=== PATIENT | male | born 1985 | race African-American/Black ===

== ENCOUNTER 2017-07-21 09:49 | Inpatient (IN) | payer OTHER ==
[2017-07-21] VITALS (13 sets, daily range): BP systolic 114–154; BP diastolic 62–89
[~2017-07-21] VITALS: Ht 177.8 cm; Wt 81.6 kg
[~2017-07-21 09:49] MED LIST: ceFAZolin sod 2 GM in D5W 110 ML IVPB ONE
--- NOTE | 2017-07-21 10:53 | Pre-Procedure Note/Attestation ---
Pre-Procedure Note/Attestation Complete Prior to Procedure Procedure Narrative: L4-5 LAMINOTOMIES, MEDIAL FACETECOMIES AND FORAMINOTOMIES WITH POSSIBLE MICRODISCECTOMY Indications for Procedure Pre-Operative Diagnosis: LUMBAR RADICULOPATHY Attestation I attest that I discussed the nature of the procedure; its benefits; risks and complications; and alternatives (and the risks and benefits of such alternatives ), prior to the procedure, with the patient (or the patient's legal sales representative metals). I attest that, if there was a reasonable possibility of needing a blood transfusion, the patient (or the patient's legal sales representative metals) was given the [facility] standardized written summary, pursuant to the [place] Blood Safety Act ([place] Health and Safety Code # 1645, as amended). I attest that I re-evaluated the patient just prior to the surgery and that there has been no change in the patient's H&P, except as documented below: RUBI CHEEMA Jul 21, 2017 10:52
[2017-07-21] MEDS ORDERED: LR 1000ml ONE (11:00)
[2017-07-21] MEDS ORDERED: Glycopyrrolate 0.2mg/ml 1ml Vial ONE (11:00)
[2017-07-21] MEDS ORDERED: Ketorolac 30mg Inj ONE (11:00)
[2017-07-21] MEDS ORDERED: Dexamethasone 4mg/ml vial ONE (11:00)
[2017-07-21] MEDS ORDERED: NS Irrig 1000ml ONE (11:00)
[2017-07-21] MEDS ORDERED: Lidocaine 1% MPF 10mg/ml 5ml ONE (11:00)
[2017-07-21] MEDS ORDERED: Sterile Water Irrig 1000ml IRRIG ONE (11:00)
[2017-07-21] MEDS ORDERED: Zemuron 50mg/5ml Inj IV ONE (11:04)
[2017-07-21] MEDS ORDERED: Succinylcholine 20mg/ml 10ml vial ONE (11:04)
[2017-07-21] MEDS ORDERED: EPINEPHrine 1mg/1ml Amp ONE (11:21)
[2017-07-21] MEDS ORDERED: Propofol 200mg/20ml IV ONE (12:29)
[2017-07-21] MEDS ORDERED: Vancomycin 1gm inj IVPB ONE (13:14)
[2017-07-21] MEDS ORDERED: Midazolam 2mg/2ml Inj ONE (13:14)
[2017-07-21] MEDS ORDERED: fentaNYL 100 mcg/2 mL IV ONE (13:14)
[2017-07-21] MEDS ORDERED: Bacitracin 50000 Units Vial ONE (13:15)
[2017-07-21] MEDS ORDERED: Bupivacaine 0.5% Inj 30 ml vial INJ ONE (13:15)
[2017-07-21] MEDS ORDERED: Thrombin 5000 units TOPIC ONE (13:15)
[2017-07-21] MEDS ORDERED: Meperidine 50mg/ml Inj(FOR RIGORS ONLY) ONE (13:31)
--- NOTE | 2017-07-21 13:39 | Brief Operative Note ---
Immediate Post Operative Note Operative Note Pre-op Diagnosis: LUMBAR RADICULOPATHY Procedure: L45 BILATERAL LAMINOTOMIES, FORAMINOTOMIES AND MEDIAL FACETECTOMIES Post-op Diagnosis: same as pre-op Findings: consistent w/pre-op dx studies Surgeon: ANETTE Offset Platemaker: KETAN Anesthesiologist: ABDIRAHMAN Anesthesia: general Specimen: none Complications: none Condition: stable Fluids: 1100CC CRYSTALLOID Estimated Blood Loss: minimal - 20CC Drains: none Implant(s) used?: No RUBI CHEEMA Jul 21, 2017 13:39
[2017-07-21] MEDS ORDERED: DiphenhydrAMINE 50mg/ml Inj IVP PRN (14:00)
[2017-07-21] MEDS ORDERED: Ketorolac 30mg Inj IV PRN (14:00)
[2017-07-21] MEDS ORDERED: Midazolam 2mg/2ml Inj IVP PRN (14:00)
[2017-07-21] MEDS ORDERED: Hydromorphone 0.5mg/0.5ml inj IVP PRN (14:00)
[2017-07-21] MEDS ORDERED: HYDROcodone/Acetamin 7.5/325 tab ORAL PRN (15:59)
[2017-07-21] MEDS ORDERED: Norco 5mg/325mg tab ORAL PRN (15:59)
[2017-07-21] MEDS ORDERED: Naloxone 0.4mg/ml Inj IVP PRN (15:59)
[2017-07-21] MEDS: D5 1/2NS 1,000 ML IV SCH (16:30)
[2017-07-21] MEDS: HYDROcodone/Acetamin 7.5/325 tab ORAL PRN ×2 (16:47→20:55)
--- NOTE | 2017-07-21 17:38 | Diagnostic Imaging Report ---
Indication: Pain Technique: Intraoperative fluoroscopic image Operating surgeon: Concepción Fluoroscopy time: 1.8 Seconds Fluoroscopy dose: 0.4 mGy Comparison: None Findings: One fluoroscopic intraoperative image obtained of the lower lumbar spine. Please see operative report. Impression: Intraoperative fluoroscopic images submitted for archival to PACS. Please see operative report.
[2017-07-21] MEDS: Docusate 100mg cap ORAL SCH (18:34)
[2017-07-21] MEDS: ceFAZolin sod 1 GM in D5W 55 ML IV SCH (18:34)
[2017-07-22] VITALS: BP 116/72
[2017-07-22] MEDS: HYDROcodone/Acetamin 7.5/325 tab ORAL PRN ×3 (00:02→12:13)
[2017-07-22] MEDS: D5 1/2NS 1,000 ML IV SCH ×2 (02:05→12:05)
[2017-07-22] MEDS: ceFAZolin sod 1 GM in D5W 55 ML IV SCH ×2 (02:40→11:00)
[2017-07-22 06:00] VITALS: BP 130/77
[2017-07-22 08:00] VITALS: BP 121/73
[2017-07-22] MEDS: Docusate 100mg cap ORAL SCH (08:41)
[2017-07-22 12:00] VITALS: BP 129/84
--- NOTE | 2017-07-22 12:47 | History and Physical ---
History of Present Illness General Date patient seen: Jul 22, 2017 Present Illness HPI 32 year old male with hx of LUMBAR RADICULOPATHY admitted for L45 BILATERAL LAMINOTOMIES, FORAMINOTOMIES AND MEDIAL FACETECTOMIES. Post operatively he is admitted to surgical floor for post op care. Pt is comfortable, the pain is controlled, only slightly anxious. Allergies: Coded Allergies: No Known Allergies (Unverified , 07/21/17) Medication History No Active Prescriptions or Reported Meds Patient History Healthcare decision maker rahel() Resuscitation status Full Code Advanced Directive on File No Past Medical/Surgical History Past Medical/Surgical History: (1) H/O right knee surgery Review of Systems All Other Systems: negative except mentioned in HPI Physical Exam General Appearance: WD/WN Lines, tubes and drains: peripheral HEENT: normocephalic, atraumatic Neck: non-tender, normal alignment Respiratory/Chest: chest wall non-tender, lungs clear Breasts: no masses Cardiovascular/Chest: normal peripheral pulses Abdomen: normal bowel sounds, non tender Genitourinary/Rectal: normal genital exam Extremities: normal range of motion Skin Exam: normal pigmentation Neurologic: ghost writer II-XII grossly normal Last 24 Hour Vital Signs Date Time Temp Pulse Resp B/P (MAP) Pulse Ox O2 Delivery O2 Flow Rate FiO2 07/22/17 12:00 99.4 92 20 129/84 100 Room Air 99.4 07/22/17 08:00 99.4 98 20 121/73 100 Room Air 99.4 07/22/17 06:00 97.7 88 20 130/77 99 Room Air 97.7 07/22/17 04:13 100.7 07/22/17 03:14 100.7 07/22/17 00:02 100.7 07/22/17 00:00 98.2 84 17 116/72 98 Room Air 98.2 07/21/17 20:55 100.7 07/21/17 20:00 98.6 92 19 124/79 98 Room Air 98.6 07/21/17 16:47 100.7 07/21/17 16:00 100.7 102 21 138/75 100 100.7 07/21/17 15:28 98.2 07/21/17 15:15 98.2 98 22 118/73 100 Nasal Cannula 3.0 98.2 07/21/17 15:00 95 23 114/62 100 Nasal Cannula 3.0 07/21/17 14:50 94 21 117/69 100 Nasal Cannula 3.0 07/21/17 14:40 96 18 120/74 100 Nasal Cannula 3.0 07/21/17 14:30 95 20 123/78 100 Nasal Cannula 3.0 07/21/17 14:15 96 18 125/79 100 Nasal Cannula 3.0 07/21/17 14:08 97.8 07/21/17 14:00 95 18 129/84 100 Nasal Cannula 3.0 07/21/17 13:50 94 16 131/85 100 Simple Mask 6.0 07/21/17 13:45 98 18 124/89 100 Simple Mask 6.0 07/21/17 13:40 97.8 101 14 136/81 100 Simple Mask 6.0 97.8 Intake and Output 07/21/17 07/22/17 19:00 07:00 Intake Total 1990 ml 2120 ml Output Total 220 ml Balance 1770 ml 2120 ml Intake Oral 240 ml 1110 ml IV Total 1750 ml 1010 ml Output Urine Total 200 ml Estimated Blood Loss 20 ml # Voids 1 3 # Bowel Movements 1 Height (Feet): 5 Height (Inches): 10.00 Weight (Pounds): 180 Medications Current Medications Medications (Trade) Dose Ordered Sig/Rudolph Route PRN Reason Start Time Stop Time Status Last Admin Dose Admin Acetaminophen/ Hydrocodone Bitart ([place] 5/325) 1 tab Q3H PRN ORAL pain score 1-3 07/21/17 15:59 07/28/17 15:58 Acetaminophen/ Hydrocodone Bitart ([place] 7.5/325) 1 tab Q3H PRN ORAL pain score 4-6 07/21/17 15:59 07/28/17 15:58 Acetaminophen/ Hydrocodone Bitart ([place] 7.5/325) 2 tab Q3H PRN ORAL pain scale 7-10 07/21/17 15:59 07/28/17 15:58 07/22/17 12:13 Dextrose/Sodium Chloride 1,000 ml @ 100 mls/hr Q10H IV 07/21/17 15:58 08/20/17 15:57 07/22/17 12:05 Docusate Sodium (Colace) 100 mg TWICE A DAY ORAL 07/21/17 18:00 08/20/17 17:59 07/22/17 08:41 Hydromorphone HCl (Dilaudid) 1 mg Q2H PRN IVP Breakthrough Pain 07/21/17 15:59 07/28/17 15:58 Hydromorphone HCl (Dilaudid) 1 mg Q4H PRN SUBQ Mild Pain (Pain Scale 1-3) 07/21/17 15:59 07/28/17 15:58 Hydromorphone HCl (Dilaudid) 2 mg Q3H PRN SUBQ Severe Pain (Pain Scale 7-10) 07/21/17 15:58 07/28/17 15:57 07/22/17 08:41 Hydromorphone HCl (Dilaudid) 2 mg Q4H PRN SUBQ Moderate Pain (Pain Scale 4-6) 07/21/17 15:58 07/28/17 15:57 Naloxone HCl (Narcan) 0.1 mg PRN PRN IVP RR<12/min, pt unarousable 07/21/17 15:59 08/20/17 15:58 Assessment/Plan Problem List: (1) Lumbar radiculopathy ICD Codes: M54.16 - Radiculopathy, lumbar region SNOMED: [id number] Assessment/Plan s/p L45 BILATERAL LAMINOTOMIES, FORAMINOTOMIES AND MEDIAL FACETECTOMIES pain management dvt prophylaxis symptomatic treatment dc when ok with surgeon. Cher Macias MD Jul 22, 2017 12:47
[2017-07-22 13:36] VITALS: BP 136/72
--- NOTE | 2017-07-22 13:36 | 48 Hour Post Anesthesia Eval ---
Post Anesthesia Evaluation Procedure: L4-L5 laminotomy with decompression Date of Evaluation: Jul 22, 2017 Time of Evaluation: 13:35 Blood Pressure Systolic: 136 0: 72 Pulse Rate: 64 Respiratory Rate: 20 Temperature (Fahrenheit): 97.6 O2 Sat by Pulse Oximetry: 98 Airway: patent Nausea: No Vomiting: No Pain Intensity: 3 Hydration Status: adequate Cardiopulmonary Status: stable Mental Status/LOC: patient returned to baseline Follow-up Care/Observations: n/a Post-Anesthesia Complications: none Follow-up care needed: N/A EDEL OCHOA M.D. Jul 22, 2017 13:36
[2017-07-22] MEDS ORDERED: 1/2 NS 1000ml IV ONE (13:59)
[2017-07-22] MEDS ORDERED: D5 1/2NS 1000ml IV ONE (13:59)
--- NOTE | 2017-07-23 10:41 | Discharge Summary ---
Discharge Summary Discharge Summary Discharge Summary DATE OF ADMISSION: 07/21/2017 DATE OF DISCHARGE: 07/22/2017 CONSULTANTS: Dr. Cher Macias BRIEF HOSPITAL COURSE: Patient is a 32-year-old male, with history of lumbar radiculopathy, was admitted for L4-L5 bilateral laminectomy, foraminotomy, and medial facetectomy. Postoperatively he was admitted to surgical floor for postoperative care. He was given pain management and diet was advanced. He was placed on SCDs for DVT prophylaxis. He was given PT and OT. He had slight fever however eventually defervesced. He was ambulating well and had good pain control. He was eventually discharged home. FINAL DIAGNOSES: Lumbar radiculopathy status post L4-L5 bilateral laminotomy, foraminotomy, and medial facetectomy. (Please refer to operative report.) DISPOSITION: Patient was discharged home. DISCHARGE INSTRUCTIONS: Follow up with in a week. I have been assigned to dictate discharge summary on this account, and I was not involved in the patient's management. Nicole Lamb NP Jul 23, 2017 10:41
--- NOTE | 2017-07-25 23:30 | Operative Note - Dictated ---
DATE OF OPERATION: 07/21/2017 PREOPERATIVE DIAGNOSIS: L4-L5 disk bulge with stenosis and lower extremity radiculopathy. POSTOPERATIVE DIAGNOSIS: L4-L5 disk bulge with stenosis and lower extremity radiculopathy. PROCEDURE PERFORMED: 1. Right L4-L5 inter lumbar laminotomy, medial facetectomy, and foraminotomy. 2. Left L4-L5 inter lumbar laminotomy, medial facetectomy, and foraminotomy. 3. Intraoperative use of microscope. 4. Intraoperative use of fluoroscopy. SURGEON: Salvador Beebe M.D. MOTORBOAT MECHANIC INBOARD: Yue El M.D. ANESTHESIA: General endotracheal anesthesia. ANESTHESIOLOGIST: Dr. Womack. INTRAOPERATIVE FINDINGS: Bilateral lateral recess stenosis at L4-L5 with disk bulge and hypertrophy of the ligamentum flavum and facet hypertrophy with impingement of the neural elements and the thecal sac. EBL: Was 20 mL. FLUIDS: 1100 mL. INDICATION: This is a pleasant male who has failed nonoperative treatment and options for above treatment was given. Risks, alternatives, and benefits were discussed with the patient at length. Risks include, but are not limited to anesthesia complications including , medical complications including liver, kidney, or cardiopulmonary deficits, bleeding, infection, dural tear, CSF leak, nerve root injury, paralysis, pars fracture, instability, reherniation, as well as continued symptoms. OPERATION: The patient was brought into the operating room, supine on a stretcher. Appropriate IV lines were placed and 2 g of Ancef was administered. Anesthesia was induced. The patient was successfully intubated. Sequential compression devices were placed. The patient was gently turned over on the Aureliano frame table. All bony prominences were well padded and the abdomen was assured to lay freely. The L4-L5 interspace was positively identified with fluoroscopy and an indelible marker was used to patience the midline. The back was prepped and draped in the usual sterile fashion with alcohol, chlorhexidine scrub, ChloraPrep and Ioban draping. At this point, the intraoperatively sterilely draped microscope was brought into the field and a vertical incision was made over the interspaces. A superficial hemostasis was achieved. Subperiosteal dissection now was undertaken for the laminas of L4 and L5. A radiopaque marker was placed at the level of the pedicle and the L4-L5 interspace was positively identified. This was done bilaterally and Chapman retractors were set in place. Intraoperatively sterilely draped microscope was used for microdissection and mobilization of the nerve roots and the neural elements for decompression. Once this was accomplished, attention was first diverted to the left side with a high-speed drill, straight and curved curette, #2 through #5 Kerrison punches and inter lumbar laminotomy, medial facetectomy, and foraminotomy was then undertaken. The ligamentum flavum, which was hypertrophied and impinging on the neural elements and the traversing L5 nerve root was removed. Foraminotomy was done with #2 Kerrison punches to clearly decompress the exiting L4 nerve root. There was some foraminal stenosis on the left side, which was taken care of and removed with the use of a #2 Kerrison punches. Now, attention was diverted to the floor of the canal. The nerve root and caudal and thecal sac were carefully medially retracted was made of #4 [place] as well as a nerve root retractor and the floor of the canal was checked. There was a small disk bulge and at this point after the dorsal decompression and lateral decompression, a formal diskectomy was deemed not to be necessary and neural elements have moved posteriorly after the decompression. Now attention was diverted to the right side with the same instrument and inter lumbar laminotomy, medial facetectomy and foraminotomy was accomplished. Hypertrophied ligamentum flavum was removed and the traversing L5 nerve root was completely decompressed. A #2 Kerrison punches was used to do a foraminotomy for the exiting L4 nerve roots. Here again, the neural elements were carefully medially retracted. The floor of the canal was checked. Again, there was a small disk bulge, which was no longer impinging on the neural elements. Once this was accomplished, a Valsalva was done at 40 mmHg. There was no CSF leak. The wound was copiously irrigated with triple antibiotic solution. Hemostasis was achieved with Gelfoam, thrombin, and bipolar cautery. There was no bleeding at the end the case. Total EBL was 20 mL and at this point attention was diverted to closure. The dorsal lumbar fascia was closed with #1 Vicryl sutures in a watertight interrupted fashion. The subdermal and subcuticular layers were closed with 2-0 Vicryl sutures with the skin was closed with Dermabond. Sterile dressing and tape was placed. All sponge, needle, and instrument counts were correct. There were no complications during the case. The patient was turned supine, was extubated in stable condition, was taken to the recovery room in stable condition and found to be neurovascularly intact. The patient was admitted to the hospital for monitoring and pain medications. He was given a postoperative appointment in 7 to 10 days. Salvador Beebe M.D. DR: DEBORAH JOB#: [id number] CC: LUCIA
== END 2017-07-22 14:00 | disposition home or self-care (01) | DRG 517 ==
LOC: SDSOVERFLO 09:49 → 3E 15:51
PROC: 01NB0ZZ Release Lumbar Nerve, Open Approach (ICD-10-PCS; principal; 2017-07-21 10:30)
DX: M51.16 Intervertebral disc disorders with radiculopathy, lumbar region (principal); M48.061 Spinal stenosis, lumbar region without neurogenic claudication; R50.82 Postprocedural fever
CPT/HCPCS: 72020; 76001; 87081; 94003; 94150; J2250; J2405